=== PATIENT | female | born 2000 | race Caucasian/White ===

== ENCOUNTER 2022-09-17 11:34 | Outpatient (REF) | payer OTHER, SELFPAY ==
[2022-09-17 14:22] LABS: Blood Urea Nitrogen 13 mg/dL (9-16); Estimated Glomerular Filt Rate > 60; Potassium 4.2 mmol/L (3.3-5.1)
== END 2022-09-17 11:35 | disposition home or self-care (01) ==
LOC: HO.WFDLDS 11:34
PROVIDERS: Visit Provider Dermatology
DX: L70.0 Acne vulgaris (principal)
CPT/HCPCS: 36415; 82565; 84132; 84520

== ENCOUNTER 2022-09-26 07:10 | Emergency (ER) | payer OTHER, SELFPAY ==
[2022-09-26 07:19] VITALS: BP 94/59; PULSE 87; RESP 18; TEMP 36.8; O2SAT 97; BMI 32.8
--- NOTE | 2022-09-26 07:37 | ED.ABDPAIN ---
HPI - Abdominal Pain General Chief Complaint: Abdominal Pain Stated Complaint: Abd pain/Vomiting Time Seen by Provider: 09/26/22 07:36 Source: patient Mode of arrival: ambulatory Limitations: no limitations History of Present Illness HPI narrative: nausea and vomiting since last night with cramping abdominal pain. No fever, no medical problems. Everyone at home has URI. elicited complaint: abdominal pain Onset (ago): hour(s) Pain Consistency: constant Location: epigastric Severity: mild Quality: cramping Associated symptoms: nausea and vomiting Related Data Previous Rx's Medication Instructions Recorded ondansetron 4 mg disintegrating 4 mg PO Q8H 4 days #12 tabs 09/26/22 tablet Allergies Allergy/AdvReac Type Severity Reaction Status Date / Time No Known Allergies Allergy Unverified 04/17/20 17:04 Review of Systems Review of Systems Yes all other systems are reviewed and are negative Gastrointestinal: Reports abdominal pain, Reports nausea and Reports vomiting PMFSH Social History Social History Advance Directives: No Advance Directives Information Provided: Yes Physical Exam ED Vital Signs: Vital Signs - 24 hr 09/26/22 07:19 09/26/22 07:42 Temperature 98.3 F 99.0 F Pulse Rate 87 90 Respiratory Rate 18 17 Blood Pressure 94/59 L 123/68 Pulse Oximetry 97 99 Oxygen Delivery Method Room Air Room Air BMI result Body Mass Index 32.8 Const General: healthy appearing Nutritional Appearance: average body habitus Orientation/consciousness: oriented to person and patient oriented x3 Limitations: no limitations HENMT Head: Yes normal to inspection Ears: external ears normal General nose exam: Normal external nose present Mouth: Normal oral and palatal mucosa present and oropharynx normal Throat: Yes posterior oropharynx normal Eyes General: appearance normal, both eyes and all related structures Neck Neck: Yes normal visual inspection Chest Chest palpation & inspection: normal inspection of the chest Resp Auscultation: clear to auscultation bilaterally Cardio Jugular venous distension: no JVD Rate: regular rate Rhythm: regular rhythm Heart sounds: S1 normal heart sound present and S2 normal heart sound present GI Inspection: Yes normal to inspection Palpation (GI): Soft to palpation, nontender and No hepatosplenomegaly present Auscultation: normal bowel sounds General: Yes no CVA tenderness Back/Spine/Pelvis Back: no CVA tenderness Skin General skin exam: no rashes or lesions noted Neuro General: oriented to person and patient oriented x3 Cranial nerves: Yes CN's II-XII intact bilaterally Motor exam (neuro): 5/5 motor strength present throughout Extrem General: Yes normal to inspection Psych Appearance: grossly normal Course Reevaluation(s) Reevaluation #1: blood pressure up with iv hydration, labs show some dehydration will dc on zofran Time: 08:46 Medical Decision Making Differential Diagnosis Differential Diagnoses: The differential diagnosis associated with the presentation includes (viral gastritis, hepatitis, pancreatitis) Lab Data MDM Lab Attestation statement: I reviewed the patient's lab results. BUN elevated likely from dehyration from vomting 09/26/22 07:51 09/26/22 07:51 Labs: Lab Results 09/26/22 09/26/22 09/26/22 Range/Units 07:31 07:51 07:51 WBC 10.3 (4.8-10.8) X10*3/uL RBC 4.97 (4.20-5.50) X10*6/uL Hgb 14.4 (12.0-16.0) g/dl Hct 42.2 (37.0-47.0) % MCV 84.9 (80.0-98.0) fL MCH 29.0 (27.0-33.0) pg MCHC 34.1 (31.0-35.0) g/dl RDW 12.5 (11.0-16.0) % Plt Count 320 (160-400) X10*3/uL MPV 9.4 (9.4-12.3) fL Immature Gran % (Auto) 0.4 (0.0-0.4) % Neut % (Auto) 85.5 H (45-73) % Lymph % (Auto) 7.4 L (20-40) % Clark % (Auto) 5.5 (2-11) % Eos % (Auto) 0.9 (0-4) % Baso % (Auto) 0.3 (0-2) % Lymph # (Auto) 0.8 L (1.2-4.9) X10*3/uL Clark # (Auto) 0.6 (0.1-1.2) X10*3/uL Eos # (Auto) 0.1 (0.0-0.4) X10*3/uL Baso # (Auto) 0.0 (0.0-0.2) X10*3/uL Abs Immat Gran (auto) 0.04 H (0.00-0.03) X10*3/uL Absolute Neuts (auto) 8.8 H (2.0-8.3) x10*3/uL Absolute Nucleated RBC 0.000 (0.0-0.012) X10*3/uL Nucleated RBC % (auto) 0.0 (0.0-0.2) /100WBC Sodium 142 (135-145) mmol/L Potassium 3.8 (3.3-5.1) mmol/L Chloride 105 (96-108) mmol/L Carbon Dioxide 28 (22-29) mmol/L Anion Gap 13 (12-20) BUN 18 H (9-16) mg/dL Creatinine 0.82 (0.5-1.4) mg/dL Estim Creat Clear Calc 108.5 Estimated GFR > 60 Random Glucose 101 (60-115) mg/dL Calcium 9.5 (8.4-10.2) mg/dL Total Bilirubin 1.3 H (0.0-1.0) mg/dL AST 16 (5-31) U/L ALT 17 (0-31) U/L Alkaline Phosphatase 68 (39-117) U/L Total Protein 7.6 (6.5-8.0) g/dL Albumin 4.6 (3.5-5.0) g/dL Beta HCG, Quant < 2 mIU/mL Influenza Type A (PCR) NEGATIVE (Negative) Influenza Type B (PCR) NEGATIVE (Negative) RSV RNA Qual (PCR) NEGATIVE (Negative) SARS-CoV-2 RNA (RT-PCR) NEGATIVE (Negative) Tests considered The following testing was considered but not selected: CT of abdomen considered but abdomen soft and labs show no abnormalitis Medications Administered Discontinued Medications Generic Name Dose Route Start Last Admin Trade Name Freq PRN Reason Stop Dose Admin Sodium Chloride 500 mls @ 999 mls/hr 09/26/22 07:45 09/26/22 08:18 Ns IV 09/26/22 08:15 Infused .Q31M LAURA Infusion Ondansetron HCl 4 mg 09/26/22 07:39 09/26/22 07:46 Ondansetron Odt 4 Mg Tab.Davidceasar DEANU 09/26/22 07:40 4 mg ONCE ONE Administration Discharge Plan Discharge Clinical Impression: Gastroenteritis, Viral gastritis Patient Disposition: Home, Self-Care Instructions: Gastritis (ED), Acute Nausea and Vomiting (ED) Prescriptions: New ondansetron 4 mg tablet,disintegrating 4 mg PO Q8H 4 Days Qty: 12 0RF Referrals: Physician,Unknown J [Primary Care Provider] - 1 week
[2022-09-26 07:42] VITALS: BP 123/68; PULSE 90; RESP 17; TEMP 37.2; O2SAT 99
[2022-09-26] MEDS: 0.9 % Sodium Chloride 500 ML 999 ML IV (07:46)
[2022-09-26] MEDS: Ondansetron ODT 4 MG TAB.RAPDIS TRANSLINGU (07:46)
[2022-09-26 07:55] LABS: MANUAL DIFF FLAG NO
[2022-09-26 07:56] LABS: Basophils Percent Auto 0.3 % (0-2); Eosinophils Absolute Auto 0.1 X10*3/uL (0.0-0.4); Eosinophils Percent Auto 0.9 % (0-4); Hematocrit 42.2 % (37.0-47.0); Hemoglobin 14.4 g/dl (12.0-16.0); Imm Gran Abs Auto 0.04 X10*3/uL (0.00-0.03); Imm Gran Pct Auto 0.4 % (0.0-0.4); Lymphocytes Absolute Auto 0.8 X10*3/uL (1.2-4.9); Lymphocytes Percent Auto 7.4 % (20-40); Mean Corpuscular HGB Conc 34.1 g/dl (31.0-35.0); Mean Corpuscular Volume 84.9 fL (80.0-98.0); Mean Platelet Volume 9.4 fL (9.4-12.3); Monocytes Absolute Auto 0.6 X10*3/uL (0.1-1.2); Monocytes Percent Auto 5.5 % (2-11); Neutrophils Absolute Auto 8.8 x10*3/uL (2.0-8.3); Neutrophils Percent Auto 85.5 % (45-73); Platelet Count 320 X10*3/uL (160-400); Red Blood Count 4.97 X10*6/uL (4.20-5.50); Red Cell Distribution Width 12.5 % (11.0-16.0); White Blood Count 10.3 X10*3/uL (4.8-10.8)
[2022-09-26 08:20] LABS: Influenza A PCR NEGATIVE (Negative); Influenza B PCR NEGATIVE (Negative); Resp Syncy Virus RNA Qual PCR NEGATIVE (Negative); SARS COV2 PCR INHOUSE NEGATIVE (Negative)
[2022-09-26 08:40] LABS: Alanine Aminotransferase 17 U/L (0-31); Albumin Level 4.6 g/dL (3.5-5.0); Alkaline Phosphatase 68 U/L (39-117); Anion Gap 13 (12-20); Aspartate Amino Transferase 16 U/L (5-31); Bilirubin Total 1.3 mg/dL (0.0-1.0); Blood Urea Nitrogen 18 mg/dL (9-16); Calcium 9.5 mg/dL (8.4-10.2); Carbon Dioxide 28 mmol/L (22-29); Chloride 105 mmol/L (96-108); Creatinine Clr Calc Pharmacy 108.5; Estimated Glomerular Filt Rate > 60; Glucose Random 101 mg/dL (60-115); HCG Quantitative < 2 mIU/mL; Potassium 3.8 mmol/L (3.3-5.1); Sodium 142 mmol/L (135-145); Total Protein 7.6 g/dL (6.5-8.0)
== END 2022-09-26 08:58 | disposition home or self-care (01) ==
PROVIDERS: Emergency Provider Emergency Medicine
DX: K52.9 Noninfective gastroenteritis and colitis, unspecified (principal); A08.4 Viral intestinal infection, unspecified; Z20.822 Contact with and (suspected) exposure to COVID-19; Z20.828 Contact with and (suspected) exposure to other viral communicable diseases; Z79.899 Other long term (current) drug therapy
CPT/HCPCS: 0241U; 80053; 84702; 85025; 99284

== ENCOUNTER 2023-03-30 11:03 | Outpatient (AMB) | payer OTHER, SELFPAY ==
[2023-03-30 11:10] VITALS: BP 108/64; PULSE 70; RESP 12; TEMP 36.6; O2SAT 99; BMI 36.8
--- NOTE | 2023-03-30 11:10 | A.OFFPC_ITS ---
Vital Signs 03/30/23 11:10 Height 5 ft 3 in Weight 207 lb 8 oz BMI 36.8 BP 108/64 Blood Pressure Location Rt brachial Position Sitting Respiration 12 Pulse 70 Pulse Source Pulse Oximeter Temp 97.9 F Temp Source Temporal Artery Scan Pulse Oximetry (%) 99 Oxygen Delivery Method Room Air Intake Visit Reasons: New patient-Re establish care, requesting PE Intake Note: Patient would like to get some information for weight loss and what steps can be taken to get her to her desired weight. Freight Forwarder Required: No Accompanied by: Self / Same As Patient Allergies No Known Allergies Allergy (Verified 03/30/23 11:32) Tobacco use date assessed: 03/30/23 Dental Screening Dental Screen Date: 03/30/23 Did you have a dental visit in the last 12 months?: Yes Did you have a dental problem in the last 6 months where you did not have access to dental care?: No Was dental information given to patient?: Patient has dentist HPI HPI Comments History of Present Illness Details 22 y/o female presents to establish care She notes she was last evaluated by her former PCP 2-3 years go No significant PMH On Levonorgestrel IUD. No acute symptoms today. She notes her last blood work was done at [facility] in September,. She reports difficultly losing weight. She notes she exercise 3 times weekly. She notes she does not maintain a healthy diet. She has never been followed by a flow specialist/dietitian. She notes she has not had a pap smear test in several years. She states she is sexually active, in a monogamous relationship, and practices safe sex. She notes she has no concerns for STD. FMH: none. PFSH Medical History (Updated 03/30/23 @ 12:00 by Km Ho CNP) Acne Asthma Surgical History (Updated 03/30/23 @ 11:23 by Pooja Ng MA) No pertinent past surgical history Family History (Updated 03/30/23 @ 11:25 by Pooja Ng MA) Father Asthma High blood pressure Maternal Grandfather High blood pressure Diabetes Cardiovascular disease Social History Housing: House Patient Tobacco Use Status: Never used Tobacco e-Cigarette/Vaping Use: Never Used service: No Current occupational status: employed Current occupation: [employer] Cognitive needs: No Hearing needs: No Vision needs: No Questionnaire PHQ-9 Over the last 2 weeks, how often have you been bothered by any of the following problems? 1. Little interest or pleasure in doing things: several days 2. Feeling down, depressed, or hopeless: not at all 3. Trouble falling or staying asleep, or sleeping too much: not at all 4. Feeling tired or having little energy: several days 5. Poor appetite or overeating: more than half the days 6. Feeling bad about yourself - or that you are a failure or have let yourself or your family down: not at all 7. Trouble concentrating on things, such as reading the newspaper or watching television: not at all 8. Moving or speaking so slowly that other people could have noticed. Or the opposite - being so fidgety or restless that you have been moving around a lot more than usual: not at all 9. Thoughts that you would be better off or of hurting yourself in some way: not at all Total score: 4 Depression Screening Interpretation: Negative Source: Developed by Drs. Luis E Roman, Jackelyn Dodson, Marino Cunha and colleagues, with an educational ag from [employer]. Thrive Questionnaire Date Thrive assessed: 03/30/23 I am a: Patient What is your living situation today?: I have a steady place to live Within the past 12 months, did the food you bought not last and you didn't have the money to get more?: Never true Within the past 12 months, did you worry whether your food would run out before you got money to buy more?: Never true Do you have trouble paying for medicines?: No Do you have trouble getting transportation to medical appointments?: No Do you have trouble paying your heating and electricity bill?: No Do you have trouble taking care of your child, family member or friend?: No Do you have trouble with day-to-day activities such as bathing, preparing meals, shopping, managing finances, etc.?: No Are you currently unemployed and looking for a job?: No Are you interested in more education?: No Please select the resources that you would like help with: None Currently or been in a relationship where the following occur: no concerns reported AUDIT C Alcohol Use Questionnaire (AUDIT-C) 1. How often do you have a drink containing alcohol?: 2-4 times a month 2. How many drinks containing alcohol do you have on a typical day when you are drinking?: 3 or 4 3. How often do you have six or more drinks on one occasion?: Less than monthly Total Score: 4 BING-7 AMB Questionnaire BING-7 Date BING - 7 assessed: 03/30/23 Feeling nervous, anxious, or on edge: 1 = Several days Not being able to stop or control worryin = Not at all Worrying too much about different things: 1 = Several days Trouble relaxin = Not at all Being so restless that it is hard to sit still: 0 = Not at all Becoming easily annoyed or irritable: 0 = Not at all Feeling afraid as if something awful might happen: 0 = Not at all Total BING-7 score (0-4 normal; 5-9 mild; 10-14 moderate; 15-21 severe): 2 Source: Developed by Drs. Luis E Roman, Jackelyn Dodson, Marino Cunha and colleagues, with an educational ag from [employer]. ACT Questionnaire In the past 4 weeks, how much of the time did your asthma keep you from getting as much done at work, school or at home?: None of the time During the past 4 weeks, how often have you had shortness of breath?: Not at all During the past 4 weeks, how often did your asthma symptoms wake you up at night or earlier than usual in the morning?: Not at all During the past 4 weeks, how often have you had to use your rescue inhaler or nebulizer medication?: Not at all How would you rate your asthma control during the past 4 weeks?: Completely controlled Score: 25 Review of Systems Const Details: Denies chills, Denies fatigue, Denies fever(s), Denies headache(s) and Denies weakness HEENT Denies change in vision, Denies dizziness, Denies headache(s), Denies hearing loss, Denies nasal congestion, Denies sinus pain, Denies sinus pressure and Denies sore throat Card Denies chest pain, Denies lightheadedness, Denies dyspnea and Denies other (palpitations) Resp Denies cough, Denies dyspnea and Denies wheezing GI Denies abdominal pain, Denies melena, Denies hematochezia, Denies change in bowel habits, Denies dyspepsia and Denies nausea Denies hematuria and Denies dysuria Musc Denies abnormal gait, Denies myalgias, Denies arthralgias, Denies numbness and Denies tingling Skin/Breast Denies rash, Denies unusual bruising and Denies wounds Neuro Denies abnormal gait, Denies dizziness, Denies headache(s), Denies memory loss, Denies numbness, Denies Sensory deficit (Neuro), Denies tingling and Denies weakness Psych Denies anxiety, Denies depression and Denies memory loss Endo Denies cold intolerance, Denies fatigue, Denies heat intolerance, Denies polydipsia and Denies polyuria Lester/Lymph Denies easy bleeding and Denies easy bruising Aller/Immun Denies wheezing Physical exam (Primary Care) Vital Signs: Last Vital Signs Temp 97.9 F 03/30/23 11:10 Pulse 70 03/30/23 11:10 Resp 12 03/30/23 11:10 BP 108/64 03/30/23 11:10 Pulse Ox 99 03/30/23 11:10 Oxygen Delivery Method Room Air 03/30/23 11:10 BMI result Body Mass Index 36.8 Tobacco/Smoking Status: Tobacco use Status Tobacco use date assessed 03/30/23 03/30/23 11:22 Patient Tobacco Use Status Never used Tobacco 03/30/23 11:22 e-Cigarette/Vaping Use Never Used 03/30/23 11:22 PHQ-9: PHQ-9 Score PHQ-9: Total score 4 03/30/23 11:23 Depression Screening Interpretation: Negative Thrive Assessment: Date of Thrive Assessment Date Thrive assessed 03/30/23 03/30/23 11:22 Currently or been in a relationship where the following occur: no concerns reported Const Other: General: no acute distress, well developed, alert and awake Nutritional Appearance: well nourished Orientation/consciousness: patient oriented x3 HENMT Head: Yes normocephalic and Yes atraumatic Ears: hearing grossly normal bilaterally. Impacted cerumen of both ears occluding the TMs General nose exam: Normal external nose present and Normal nares present Mouth: Normal oral and palatal mucosa present and moist mucous membranes Teeth and gingiva: dentition normal Throat: Yes oropharynx normal Eyes Pupils: Equal, round and reactive pupils present and Pupil accommodation reflex normal EOM: EOMs intact bilaterally Neck Neck: Yes normal visual inspection, Yes no lymphadenopathy and Yes trachea midline Thyroid: Thyroid normal Carotids: no bruits Lymphatic: no lymphadenopathy noted Chest Chest palpation & inspection: normal inspection of the chest Resp Effort & Inspection: normal respiratory effort Auscultation: clear to auscultation bilaterally Cardio Rate: regular rate Rhythm: regular rhythm Heart sounds: S1 normal heart sound present, S2 normal heart sound present, no gallops, no murmurs and no rubs Bruits: no abdominal aortic bruits and no carotid bruits GI Palpation (GI): No Abdominal aortic bruit present, Soft to palpation, nontender, No hepatosplenomegaly present and No Rebound tenderness present Auscultation: normal bowel sounds General: Yes no CVA tenderness Back/Spine/Pelvis Back: no CVA tenderness Cervical Spine: cervical ROM normal and No Cervical spine tenderness Thoracic/Lumbar Spine: thoraco-lumbar ROM normal, No pain with thoraco-lumbar ROM, No thoracic spinal tenderness and No lumbar spinal tenderness Skin General: warm and dry. Normal skin color. Normal skin turgor Lesions: no lesions Rashes: no rashes Trauma: no lacerations or abrasions Wounds: no wounds Nails: normal Neuro General: patient oriented x3, gait normal and CN's II-XI intact bilaterally Cranial nerves: Yes Equal, round and reactive pupils present Cognition (Neuro): normal cognition Gait exam (Neuro): Normal gait present Motor exam (neuro): 5/5 motor strength present throughout Sensory Exam: No Sensory deficit (Neuro) Deep tendon reflexes (DTR's): Right patellar reflex intensity grade: 2+ and Left patellar reflex intensity grade: 2+ Extrem General: Yes normal to inspection, No edema and No calf tenderness Psych Appearance: grossly normal Affect: normal affect Attitude: cooperative Thought process: Normal thought process present Assessment and Plan Assessment & Plan (1) Normal physical examination, routine: Code(s): Z00.00 - Encounter for general adult medical examination without abnormal findings Plan: No significant physical restrictions or limitations noted Will check LP, TSH, fasting glucose, and UA Advised to get routine fasting blood work done and schedule a telehealth visit for labs review Return with symptoms or concerns Verbalized understanding and agreed with the treatment plan (2) Obesity (BMI 30-39.9): Code(s): E66.9 - Obesity, unspecified Plan: Reports difficultly losing weight. She notes she exercise 3 times weekly. She notes she does not maintain a healthy diet. She has never been followed by a flow specialist/dietitian. Routine exercise and healthy diet instructed and encouraged Referred to flow specialist/dietitian and weight management Return with symptoms or concerns Verbalized understanding and agreed with the plan. (3) Pap smear for cervical cancer screening: Code(s): Z12.4 - Encounter for screening for malignant neoplasm of cervix Plan: She notes she has not had a pap smear test in several years. Refer to [facility] (4) Impacted cerumen of both ears: Code(s): H61.23 - Impacted cerumen, bilateral Plan: Impacted cerumen of both ears occluding the TMs No hearing impairment Advised to return for cerumen removal with ear pain or impairment Verbalized understanding and agreed with the plan (5) Laboratory tests ordered as part of a complete physical exam (CPE): Code(s): Z00.00 - Encounter for general adult medical examination without abnormal findings Plan: Fasting labs ordered as part of a complete physical exam. Advised to fast for at least 10 hours before getting labs drawn. May drink water Verbalized understanding and agreed with treatment plan. Orders: Orders Glucose Fasting Today Z00.00 - Encounter for general adult medical examination without abnormal findings Lipid Panel Today Z00.00 - Encounter for general adult medical examination without abnormal findings TSH reflex Free T4 Today Z00.00 - Encounter for general adult medical examination without abnormal findings UA CC w/rflx Micro + Cult Today Z00.00 - Encounter for general adult medical examination without abnormal findings Referrals Ruby Engineer Nutrition Referral E66.9 - Obesity, unspecified Medical Weight Management Referral E66.9 - Obesity, unspecified CODER Referral Z12.4 - Encounter for screening for malignant neoplasm of cervix Coding Level of Care Code New Pt Prev Care [id number] Diagnoses Normal physical examination, routine Z00.00 Obesity (BMI 30-39.9) E66.9 Pap smear for cervical cancer screening Z12.4 Impacted cerumen of both ears H61.23 Laboratory tests ordered as part of a complete physical exam (CPE) Z00.00
== END 2023-03-30 11:57 | disposition home or self-care (01) ==
PROVIDERS: PCP Nurse Practitioner Family; Visit Provider Nurse Practitioner Family
DX: Z00.00 Encounter for general adult medical examination without abnormal findings (principal); E66.9 Obesity, unspecified; H61.23 Impacted cerumen, bilateral; Z68.36 Body mass index [BMI] 36.0-36.9, adult
CPT/HCPCS: 99385

== ENCOUNTER 2023-04-15 10:28 | Outpatient (REF) | payer OTHER, SELFPAY ==
[2023-04-15 15:17] LABS: Appearance Urine Clear; Color Urine Yellow; Glucose Urine UA Negative (Negative); Leukocyte Esterase Urine Negative (Negative); Nitrite Urine Negative (Negative); Urine Blood Negative (Negative); Urine Ketones Negative (Negative); Urine Protein Negative (Neg-Trace)
[2023-04-15 16:24] LABS: Cholesterol 144 mg/dL (<200); Glucose Fasting 64 mg/dL (60-99); HDL Cholesterol 51 mg/dL (>40); LDL Cholesterol Calculated 80 mg/dL (<100); TSH reflex Free T4 2.41 uIU/mL (0.32-4.0); Triglycerides 67 mg/dL (<150)
== END 2023-04-15 10:29 | disposition home or self-care (01) ==
LOC: HO.WFDLDS 10:28
PROVIDERS: Visit Provider Nurse Practitioner Family
DX: Z00.00 Encounter for general adult medical examination without abnormal findings (principal)
CPT/HCPCS: 36415; 80061; 81003; 82947; 84443

== ENCOUNTER 2023-05-03 09:56 | Emergency (ER) | payer OTHER, SELFPAY ==
[2023-05-03 09:58] VITALS: BP 126/71; PULSE 60; RESP 18; TEMP 36.6; O2SAT 100; BMI 37.5
--- NOTE | 2023-05-03 10:14 | ED_ITS ---
HPI - General Adult General Chief complaint: General Medical Stated complaint: Stung by bee L arm/redness swelling Time Seen by Provider: 05/03/23 10:07 Source: patient, RN notes reviewed and old records reviewed Mode of arrival: ambulatory History of Present Illness HPI narrative: 22-year-old female with no significant past medical history presenting to the ED complaining of increasing erythema, swelling, and pruritus s/p being stung by a bee 3 days ago. Denies known allergens, cough, wheeze, SOB, throat closing sensation, new exposures. Admits to taking Benadryl last night with minimal relief, denies taking anything today. Related Data Home Medications Medication Instructions Recorded Confirmed levonorgestrel 20.4 mcg/24 hrs (8 intrauterine 03/30/23 yrs) 52 mg intrauterine device (Liletta) Allergies Allergy/AdvReac Type Severity Reaction Status Date / Time No Known Allergies Allergy Verified 05/03/23 09:57 Review of Systems Review of Systems: Constitutional: No Fever, No Chills ENT/Mouth: No Ear Pain, No Nasal Congestion, No Hoarseness, No sore throat, No Rhinorrhea, No Swallowing Difficulty Cardiovascular: No Chest Pain, No SOB Respiratory: No Cough, No Sputum, No Wheezing Gastrointestinal: No Nausea, No Vomiting Musculoskeletal: No joint pain, No Myalgias, No Joint Swelling Skin: + Skin Lesions, No rash Neuro: No Weakness Yes all other systems are reviewed and are negative Constitutional: Constitutional: Reports as per [facility] Past Medical History Attestation statement: The following information was validated with the patient. Source: old records reviewed Medical History Acne Asthma Surgical History No pertinent past surgical history Family History Family History Father Asthma High blood pressure Maternal Grandfather High blood pressure Diabetes Cardiovascular disease Social History Social History Housing: House Patient Tobacco Use Status: Never used Tobacco Smoked in Last 30 Days: No e-Cigarette/Vaping Use: Never Used Use of substances other than those prescribed or required for medical reasons: No Advance Directives: No Advance Directives Information Provided: No service: No Current occupational status: employed Current occupation: [employer] Cognitive needs: No Hearing needs: No Vision needs: No Physical Exam ED Vital Signs: Vital Signs - 24 hr 05/03/23 09:58 Temperature 97.9 F Pulse Rate 60 Respiratory Rate 18 Blood Pressure 126/71 Pulse Oximetry 100 Oxygen Delivery Method Room Air BMI result Body Mass Index 37.5 Const General: cooperative, healthy appearing and no acute distress Orientation/consciousness: patient oriented x3 Limitations: no limitations HENMT Head: Yes normal to inspection and Yes atraumatic Ears: hearing grossly normal bilaterally General nose exam: Normal external nose present Face and sinus: Yes normal facial exam Throat: Yes uvula midline, No peritonsillar mass, No uvula laterally displaced and No uvular edema Eyes General: appearance normal, both eyes and all related structures EOM: EOMs intact bilaterally Neck Neck: Yes normal visual inspection, Yes no meningeal signs, Yes supple, No ante rior neck swelling and No torticollis Resp Effort & Inspection: normal respiratory effort, not labored, no respiratory distress and no stridor Auscultation: clear to auscultation bilaterally Cardio Rate: regular rate Skin Other: + insect bite to left upper arm with large localized allergic reaction with surrounding erythema, and swelling. Warm. No fluctuance/induration. Not circumferential. Compartments soft/no crepitus Wounds: no wounds Neuro General: patient oriented x3, tone normal and no meningeal signs Cranial nerves: Yes CN's II-XII intact bilaterally Gait exam (Neuro): Normal gait present Extrem General: Yes normal to inspection Course Course Course Narrative: -1121--on re-evaluation swelling and erythema has decreased after medication administration Results discussed with patient including worrisome signs and symptoms and strict return precautions, and when to return to the emergency department. They verbalized understanding and feel safe for discharge at this time. Medications Administered Discontinued Medications Generic Name Dose Route Start Last Admin Trade Name Freq PRN Reason Stop Dose Admin Diphenhydramine HCl 50 mg 05/03/23 10:17 05/03/23 10:32 Diphenhydramine Hcl 50 Mg/Ml Vial IM 05/03/23 10:18 50 mg ONCE ONE Administration Famotidine 20 mg 05/03/23 10:17 05/03/23 10:32 Famotidine 20 Mg Tablet PO 05/03/23 10:18 20 mg ONCE ONE Administration Hydrocortisone 1 appl 05/03/23 10:17 05/03/23 10:47 Hydrocortisone 1 % Cream 28.35 Gm Tube TOPICAL 05/03/23 10:18 1 appl ONCE ONE Administration Protocol Loratadine 10 mg 05/03/23 10:17 05/03/23 10:31 Loratadine 10 Mg Tablet PO 05/03/23 10:18 10 mg ONCE ONE Administration Methylprednisolone Sodium Succinate 60 mg 05/03/23 10:17 05/03/23 10:32 Methylprednisolone Sod Succ 125 Mg/2 Ml Vial IM 05/03/23 10:18 60 mg ONCE ONE Administration Medical Decision Making Medical Decision Making MDM Narrative: 22-year-old female with no significant past medical history presenting to the ED complaining of increasing erythema, swelling, and pruritus s/p being stung by a bee 3 days ago. On exam vital signs stable, NAD, nontoxic appearing, no respiratory distress/compromise, talking in complete sentences, no stridor, uvula midline, large localized allergic reaction noted to left upper arm with notable insect bite location. Not circumferential. Warm to touch. Neurovascular intact distally. Full range of motion intact. Concern for allergic reaction. Low suspicion for cellulitis, no evidence of anaphylaxis. Low suspicion for compartment syndrome Plan: IM Solu-Medrol/Benadryl, p.o. Pepcid/Claritin and topical hydrocortisone, re-evaluate Please refer to course for remaining clinical decision making, interpretation of labs/imaging results, and discussions with consultants and/or family members. Differential Diagnosis Differential Diagnoses: The differential diagnosis associated with the presentation includes As above External Record Review External record reviewed: Inpatient record, Office record, Outpatient record, Prior outpatient labs, Prior outpatient radiology, Primary care record and Outside ED record Tests considered The following testing was considered but not selected: As above Prescription Management I considered prescription management with: Antibiotic (Not needed at this time) and Other Discharge Plan Discharge Clinical Impression: Localized allergic contact urticaria, Accidental bee sting Patient Disposition: Home, Self-Care Instructions: Insect Bite or Sting (ED), General Allergic Reaction (ED) Additional Instructions: Your given injection of medications today to help with her symptoms In addition continue to take Benadryl at home, be aware this will make you drowsy Take Zyrtec or Melvi during the day You may also take Pepcid Topical hydrocortisone help with itching, apply to rash area only, avoid application to face, hands or feet. If he develops any difficulty breathing, throat scratching/closing sensation, cough, SOB return to the ED immediately Prescriptions: No Action Liletta 20.4 mcg/24 hrs (8 yrs) 52 mg intrauterine device intrauterine Referrals: Km [facility], CATERING ATTENDANT [Primary Care Provider] - 3 days
[2023-05-03] MEDS: Loratadine 10 MG TABLET PO (10:31)
[2023-05-03] MEDS: diphenhydrAMINE HCL 50 MG/ML VIAL IM (10:32)
[2023-05-03] MEDS: Famotidine 20 MG TABLET PO (10:32)
[2023-05-03] MEDS: methylPREDNISolone Sod Succ 125 MG/2 ML VIAL 60 MG IM (10:32)
--- NOTE | 2023-05-03 10:40 | PC.NURSE ---
swollen red raised areas to LUE- states stung by bee tuesday w/o sx anaphylaxis. itchy at site. no distress. breathing well. talks w/o issue. calm, coop. aox4
--- NOTE | 2023-05-03 10:41 | PC.NURSE ---
med req'd hydrocort cream
[2023-05-03] MEDS: Hydrocortisone 1 % Cream 28.35 GM TUBE 1 APPL TOPICAL (10:47)
--- NOTE | 2023-05-03 11:39 | PC.NURSE ---
no diff breathing. aox4. calm, coop.
== END 2023-05-03 11:39 | disposition home or self-care (01) ==
PROVIDERS: Emergency Provider Emergency Medicine; PCP Nurse Practitioner Family
DX: T63.441A Toxic effect of venom of bees, accidental (unintentional), initial encounter (principal); L23.9 Allergic contact dermatitis, unspecified cause; Y92.9 Unspecified place or not applicable
CPT/HCPCS: 96372; 99284; J1200; J2930

== ENCOUNTER 2023-07-27 13:23 | Outpatient (REF) | payer OTHER, SELFPAY ==
[2023-07-28 02:45] LABS: CT PCR NOT DETECTED (Not Detect.); NG PCR NOT DETECTED (Not Detect.)
[2023-07-28 12:48] LABS: BV Int Neg Control Negative (Negative); BV Int Pos Control Positive (Positive)
== END 2023-07-27 13:24 | disposition home or self-care (01) ==
LOC: HO.LNP 13:23
PROVIDERS: PCP Nurse Practitioner Family; Visit Provider Advanced Practice Midwife
DX: Z01.419 Encounter for gynecological examination (general) (routine) without abnormal findings (principal); E66.9 Obesity, unspecified; Z97.5 Presence of (intrauterine) contraceptive device; Z20.2 Contact with and (suspected) exposure to infections with a predominantly sexual mode of transmission; Z79.899 Other long term (current) drug therapy
CPT/HCPCS: 0353U; 87480; 87510; 87660

== ENCOUNTER 2023-07-27 13:23 | Outpatient (AMB) | payer OTHER, SELFPAY ==
[2023-07-27 13:44] VITALS: BP 120/68; BMI 38.8
--- NOTE | 2023-07-27 13:44 | A.OFFVIS_ITS ---
Intake Vital Signs 07/27/23 13:44 Height 5 ft 3 in Weight 219 lb BMI 38.8 BP 120/68 Intake Visit Reasons: New patient Annual Intake Note: IUD check Thinner Sprayer Required: No Information Interpreted: non-clinical & clinical Senior Commissary Agent: Senior Commissary Agent Present (Aidyn) Allergies No Known Allergies Allergy (Verified 07/27/23 13:45) Medication List - Last Reconciled 07/27/23 by Miya Sanchez CNM famotidine (Pepcid) 20 mg PO DAILY hydrocortisone 1% (Anti-Itch (hydrocortisone)) 1 appl topical BID PRN levonorgestrel (Liletta) intrauterine prednisone 40 mg (2 x 20 mg) PO DAILY 5 days Is last menstrual period known: Yes Last menstrual period: 07/24/23 Post menopausal: No HPI New patient Annual HPI Details 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 She used to go to somebody from [facility] in the [place] office she has a Mirena for few years but she is not sure how many she thinks it might be about 6 years if she were pressed to guess. She thinks her last Pap smear was 2 years ago and it was normal and she has never had an abnormal 1 she is in a monogamous relationship with her boyfriend they bought a house and then they got a dog 1 year ago as a puppy. Childbearing is not in her eyes in in the near future but maybe sometime after that. She spoke to her primary care provider about weight loss and is awaiting a referral to the weight management program. She is not doing any formal exercise but she is very active with her 70 lb dog who was just to year old. 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 She has a Liletta IUD and her periods went away for the 1st year but they returned soon after and they have been fairly regular since then not very heavy at all. She thought they told her it was good for 7 day 8 years but she does not have any paperwork and she thought that we would know when it was inserted but there are no records in the system documenting this. [facility] Medical History Acne Asthma Surgical History No pertinent past surgical history Family History Father Asthma High blood pressure Maternal Grandfather High blood pressure Diabetes Cardiovascular disease Social History Housing: House Patient Tobacco Use Status: Never used Tobacco e-Cigarette/Vaping Use: Never Used service: No Current occupational status: employed Current occupation: [employer] Cognitive needs: No Hearing needs: No Vision needs: No Female Reproductive History Menstrual Age of Menarche: 8 Duration of menses: 3-5 days Date of last menstrual period: 07/24/23 control method: progestin IUCD (Lylleta) Total pregnancies: 0 Physical Exam Vital Signs: Last Vital Signs BP 120/68 07/27/23 13:44 BMI result Body Mass Index 38.8 Const General: healthy appearing, comfortable, no acute distress, well developed and alert Nutritional Appearance: average body habitus Orientation/consciousness: patient oriented x3 Limitations: no limitations HEENT Head: Yes normocephalic Neck Neck: Yes normal visual inspection Thyroid: Thyroid normal Chest Chest palpation & inspection: normal inspection of the chest Breast/axilla inspection: normal inspection of the breasts and normal inspection of the axillae Breast/axilla palpation: normal palpation of the breasts and normal palpation of the axillae Resp Effort & Inspection: normal respiratory effort GI Inspection: Yes normal to inspection, No Abdominal wall edema and No distended Palpation (GI): Soft to palpation and nontender General: Yes bladder normal to palpation External Female Exam: normal external appearance and normal appearance of the urethra Speculum Exam - Vagina: normal appearance of the vagina, normal palpation and normal vaginal discharge Speculum Exam - Cervix: normal appearance of the cervix, normal palpation and nontender Bimanual exam- vagina & uterus: normal bimanual exam, normal palpation, uterine size normal, bladder normal to palpation, consistency normal, normal palpation, uterine mobility normal, uterine shape normal, No Cervical tenderness present, non-tender and no cervical motion tenderness Bimanual Exam- Adnexa, other: normal adnexae, no masses, normal and No adnexal tenderness Neuro General: patient oriented x3 Assessment & Plan Assessment & Plan (1) Obesity (BMI 30-39.9): Code(s): E66.9 - Obesity, unspecified (2) Pap smear for cervical cancer screening: Comment: Patient believes her last negative and normal Pap smear was done in 2020 she would be due for a Pap smear in 2023 Code(s): Z12.4 - Encounter for screening for malignant neoplasm of cervix (3) Well woman exam with routine gynecological exam: Code(s): Z01.419 - Encounter for gynecological examination (general) (routine) without abnormal findings (4) Presence of 52 mg levonorgestrel-releasing intrauterine device (IUD): Comment: Has a Liletta that was placed perhaps 6 years ago though she is uncertain using that for control--plan on replacement with new Mirena at beginning of menses next month or the next, use condoms as backup till then. Code(s): Z97.5 - Presence of (intrauterine) contraceptive device Plan -----Discussed in this visit the following: healthy balanced diet, regular and consistent exercise, getting recommended health screens, doing the best she can for her particular health concerns, kegel exercises, pap smear screening and followup recommendations, mammography screening and SBE, normal changes in cycles in her life stage--- .----I reviewed available options for Control Methods and their associated side effect profiles. In particular, we discussed the method most of interest to her.-she likes the Liletta and its served her well and she has not had any negative side effects since it is being used for control and unclear when it was inserted re should plan on replacing it when possible with either her next menses or the 1 after that if possible. She does not believe she is due for the Pap smear until next year so Pap was deferred but testing for STIs was done the discharge appeared completely normal consistent with mucousy post menses discharge Liletta string was visible. Discussed the length of time levonorgestrel IUDs can be used and while the time is somewhat variable when they reach the end of their life time it is very difficult to say how long they really are protective against . Her menses returned about 1 year into the use of the Liletta. She is not planning a at this time and would like to put off for few more years so it would be heard to replace it soon discussed replacing it that we will just simply remove 1 and replace it with Mirena but we should do it at the beginning of her. Additionally while I used a Dmitriy speculum today a Graves speculum would be necessary to gain sufficient access to her cervix for replacement. She declined blood work for STIs as not necessary. Orders: Orders CT NG by PCR Today Z11.3 - Encounter for screening for infections with a predominantly sexual mode of transmission Bacterial Vaginosis Panel Today Z11.3 - Encounter for screening for infections with a predominantly sexual mode of transmission Coding Level of Care Code New Pt Prev Care 18-39yr([id number] Diagnoses Obesity (BMI 30-39.9) E66.9 Pap smear for cervical cancer screening Z12.4 Well woman exam with routine gynecological exam Z01.419 Presence of 52 mg levonorgestrel-releasing intrauterine device (IUD) Z97.5
== END 2023-07-27 14:27 | disposition home or self-care (01) ==
PROVIDERS: PCP Nurse Practitioner Family; Visit Provider Advanced Practice Midwife
DX: Z01.419 Encounter for gynecological examination (general) (routine) without abnormal findings (principal); E66.9 Obesity, unspecified; Z97.5 Presence of (intrauterine) contraceptive device
CPT/HCPCS: 99385

== ENCOUNTER 2024-01-10 09:38 | Outpatient (AMB) | payer OTHER, SELFPAY ==
[2024-01-10 09:45] VITALS: BP 110/70; PULSE 84; RESP 14; TEMP 36.6; O2SAT 99; BMI 37.1
--- NOTE | 2024-01-10 09:45 | MHC.PC.OV ---
Vital Signs 01/10/24 09:45 Height 5 ft 3 in Weight 209 lb 4 oz BMI 37.1 BP 110/70 Blood Pressure Location Rt brachial Position Sitting Respiration 14 Pulse 84 Pulse Source Pulse Oximeter Temp 97.8 F Temp Source Temporal Artery Scan Pulse Oximetry (%) 99 Oxygen Delivery Method Room Air Intake Visit Reasons: Sore Throat, Cough, Runny Nose Pharmacist Apprentice Required: No Accompanied by: Self / Same As Patient Allergies No Known Allergies Allergy (Verified 01/10/24 09:50) Tobacco use date assessed: 01/10/24 Dental Screening Dental Screen Date: 01/10/24 Did you have a dental visit in the last 12 months?: Yes Did you have a dental problem in the last 6 months where you did not have access to dental care?: No Was dental information given to patient?: Patient has dentist HPI HPI Comments History of Present Illness Details 23-year-old female presents with complaints of cold symptoms for the past 2 weeks. She reports intermittent productive cough with clear mucus that is worse at night, sore throat, runny nose, and crusty eyes in the morning (no pain, redness, or visual disturbances). She had a negative home covid test over a week ago. She had body aches and chills for 24 hours about a week ago. She has been taking Claritin daily and Tylenol at night. No current fever, chills, body aches, fatigue or weakness. Her partner has a cough. [facility] Medical History Acne Asthma Surgical History No pertinent past surgical history Family History Father Asthma High blood pressure Maternal Grandfather High blood pressure Diabetes Cardiovascular disease Social History Housing: House Patient Tobacco Use Status: Never used Tobacco e-Cigarette/Vaping Use: Never Used service: No Current occupational status: employed Current occupation: [employer] Cognitive needs: No Hearing needs: No Vision needs: No Female Reproductive History Menstrual Age of Menarche: 8 Questionnaire Thrive Questionnaire Date Thrive assessed: 03/30/23 BING-7 AMB Questionnaire BING-7 Date BING - 7 assessed: 03/30/23 Source: Developed by Drs. Luis E Roman, Jackelyn Dodson, Marino Cunha and colleagues, with an educational ag from [employer]. Review of Systems Const Details: Const Denies chills, Denies fatigue, Denies fever(s), Denies headache(s) and Denies weakness ENT Reports as per HPI Card Denies chest pain, Denies lightheadedness, Denies dyspnea and Denies other (Palpitations) Resp Denies cough, Denies dyspnea, Denies wheezing and Denies other ( shortness of breath) GI Denies abdominal pain, Denies melena, Denies hematochezia, Denies change in bowel habits, Denies dyspepsia and Denies nausea Denies hematuria and Denies dysuria Musc Denies abnormal gait, Denies myalgias, Denies arthralgias, Denies numbness and Denies tingling Skin/Breast Denies rash, Denies unusual bruising and Denies wounds Neuro Denies abnormal gait, Denies dizziness, Denies headache(s), Denies memory loss, Denies numbness, Denies Sensory deficit (Neuro), Denies tingling and Denies weakness Psych Denies anxiety, Denies depression, Denies memory loss Endo Denies cold intolerance, Denies fatigue, Denies heat intolerance, Denies polydipsia and Denies polyuria Aller/Immun Denies wheezing Physical exam (Primary Care) Vital Signs: Last Vital Signs Temp 97.8 F 01/10/24 09:45 Pulse 84 01/10/24 09:45 Resp 14 01/10/24 09:45 BP 110/70 01/10/24 09:45 Pulse Ox 99 01/10/24 09:45 Oxygen Delivery Method Room Air 01/10/24 09:45 BMI result Body Mass Index 37.1 Tobacco/Smoking Status: Tobacco use Status Tobacco use date assessed 01/10/24 01/10/24 09:52 Patient Tobacco Use Status Never used Tobacco 01/10/24 09:52 e-Cigarette/Vaping Use Never Used 01/10/24 09:52 Thrive Assessment: Date of Thrive Assessment Date Thrive assessed 03/30/23 01/10/24 09:52 Const Other: General: no acute distress and well developed Nutritional Appearance: well nourished Orientation/consciousness: patient oriented x3 HENIL Head is normocephalic Bilateral ear canal and TM are normal Nasal turbinates is pink and moist Oropharynx with moderate erythema, no patches, exudates, or edema Sinuses are nontender with palpation No auricular or cervical lymphadenopathy Eyes General: appearance normal, both eyes and all related structures Pupils: Equal, round and reactive pupils present EOM: EOMs intact bilaterally Resp Effort & Inspection: normal respiratory effort Auscultation: clear to auscultation bilaterally Cardio Rate: regular rate Rhythm: regular rhythm Heart sounds: S1 normal heart sound present, S2 normal heart sound present, no gallops, no murmurs and no rubs GI Palpation (GI): No Abdominal aortic bruit present, Soft to palpation, nontender, No hepatosplenomegaly present and No Rebound tenderness present Auscultation: normal bowel sounds General: Yes no CVA tenderness Back/Spine/Pelvis Back: no CVA tenderness Cervical Spine: cervical ROM normal and No Cervical spine tenderness Thoracic/Lumbar Spine: thoraco-lumbar ROM normal, No pain with thoraco-lumbar ROM, No thoracic spinal tenderness and No lumbar spinal tenderness Extrem General: Yes normal to inspection, No edema and No calf tenderness Skin General: warm and dry. Normal skin color. Normal skin turgor Neuro General: patient oriented x3, gait normal and no focal neuro deficit Cranial nerves: Yes Equal, round and reactive pupils present Cognition (Neuro): normal cognition Gait exam (Neuro): Normal gait present Sensory Exam: No Sensory deficit (Neuro) Psych Appearance: grossly normal Affect: normal affect Attitude: cooperative Thought process: Normal thought process present Assessment and Plan Assessment & Plan (1) Viral upper respiratory illness: Code(s): J06.9 - Acute upper respiratory infection, unspecified Plan: Likely viral illness though possibly allergies. No exam evidence of bacterial infection Viral illness There is no antibiotic medication for viruses.? They must run their course.? Most average 5-7 days but 7-10 days is not uncommon and up to 14 days is still possible.? A cough is often the last symptom to resolve and this can last for weeks in some cases. Rest Hydrate well -? Drink plenty of fluids.? Especially water. Tylenol or ibuprofen for muscle aches, headache, fever/discomfort Cannot rule out COVID-19/RSV/Flu infection Nasal swab acquired and will be sent to the lab May stop taking Claritin and start taking Zyrtec daily Advised to take benzonatate as prescribed Return for new or worsening symptoms Verbalized understanding and agreed with treatment plan. (2) Viral pharyngitis: Code(s): J02.9 - Acute pharyngitis, unspecified Plan: Oropharynx with moderate erythema, no patches, exudates, or edema No evidence of bacterial infection Plan as above Orders: Orders SARS-CoV2/FLU/RSV Today J06.9 - Acute upper respiratory infection, unspecified Medications: New benzonatate 200 mg PO BID PRN 20 caps 0RF cough Coding Level of Care Code Est Pt Level 4 (32604) Complex EM visit Add On G2211 Diagnoses Viral upper respiratory illness J06.9 Viral pharyngitis J02.9
== END 2024-01-10 10:12 | disposition home or self-care (01) ==
PROVIDERS: PCP Nurse Practitioner Family; Visit Provider Nurse Practitioner Family
DX: J06.9 Acute upper respiratory infection, unspecified (principal); J02.9 Acute pharyngitis, unspecified
CPT/HCPCS: 99214

== ENCOUNTER 2024-01-10 10:14 | Outpatient (REF) | payer OTHER, SELFPAY ==
[2024-01-10 15:20] LABS: Influenza A PCR NEGATIVE (Negative); Influenza B PCR NEGATIVE (Negative); Resp Syncy Virus RNA Qual PCR NEGATIVE (Negative); SARS COV2 PCR INHOUSE NEGATIVE (Negative)
== END 2024-01-10 10:15 | disposition home or self-care (01) ==
LOC: HO.LAB 10:14
PROVIDERS: Visit Provider Nurse Practitioner Family
DX: J06.9 Acute upper respiratory infection, unspecified (principal)
CPT/HCPCS: 0241U

== ENCOUNTER 2024-02-15 21:53 | Emergency (ER) | payer OTHER, SELFPAY ==
--- NOTE | ~2024-02-15 | US_ITS ---
EXAMINATION: US ABDOMEN LIMITED CLINICAL INFORMATION: Right upper quadrant pain. COMPARISON: None available. TECHNIQUE: Real-time imaging of the right upper quadrant abdominal viscera. This examination is focused on the liver, gallbladder and common duct. FINDINGS: LIVER: Normal size, contour and parenchymal echotexture. No focal lesion or intrahepatic ductal dilatation. GALLBLADDER: Normal. The gallbladder is physiologically distended without evidence of stones, sludge, polyps, wall thickening or pericholecystic fluid. COMMON BILE DUCT: Normal in caliber measuring up to 0.5 cm in maximum diameter. FREE FLUID: None. US/US abdomen limited IMPRESSION: Normal exam. No evidence of cholelithiasis, cholecystitis or biliary tract obstruction.
[2024-02-15 22:12] VITALS: BP 105/66; PULSE 69; RESP 18; TEMP 36.5; O2SAT 99; BMI 35.8
--- NOTE | 2024-02-15 22:39 | MHC.EDTECH ---
Patient blood drawn and sent to lab .
[2024-02-15 22:40] LABS: MANUAL DIFF FLAG NO
[2024-02-15 22:41] LABS: Basophils Percent Auto 0.2 % (0-2); Eosinophils Absolute Auto 0.1 X10*3/uL (0.0-0.4); Eosinophils Percent Auto 0.6 % (0-4); Hematocrit 35.9 % (37.0-47.0); Hemoglobin 12.6 g/dl (12.0-16.0); Imm Gran Abs Auto 0.03 X10*3/uL (0.00-0.03); Imm Gran Pct Auto 0.2 % (0.0-0.4); Lymphocytes Percent Auto 23.6 % (20-40); Mean Corpuscular HGB Conc 35.1 g/dl (31.0-35.0); Mean Corpuscular Hemoglobin 29.7 pg (27.0-33.0); Mean Corpuscular Volume 84.7 fL (80.0-98.0); Mean Platelet Volume 9.6 fL (9.4-12.3); Monocytes Absolute Auto 0.9 X10*3/uL (0.1-1.2); Monocytes Percent Auto 6.8 % (2-11); Neutrophils Absolute Auto 8.7 x10*3/uL (2.0-8.3); Neutrophils Percent Auto 68.6 % (45-73); Platelet Count 345 X10*3/uL (160-400); Red Blood Count 4.24 X10*6/uL (4.20-5.50); White Blood Count 12.6 X10*3/uL (4.8-10.8)
[2024-02-15 22:55] LABS: Alanine Aminotransferase 11 U/L (0-31); Albumin Level 4.5 g/dL (3.5-5.0); Alkaline Phosphatase 67 U/L (39-117); Anion Gap 16 (12-20); Aspartate Amino Transferase 14 U/L (5-31); Bilirubin Direct 0.2 mg/dL (0.0-0.5); Bilirubin Total 0.5 mg/dL (0.0-1.0); Blood Urea Nitrogen 15 mg/dL (9-16); Calcium 9.8 mg/dL (8.4-10.2); Carbon Dioxide 22 mmol/L (22-29); Chloride 106 mmol/L (96-108); Creatinine Clr Calc Pharmacy 124.9; Estimated Glomerular Filt Rate > 60; Glucose Random 96 mg/dL (60-115); Lipase 16 U/L (8-78); Potassium 3.5 mmol/L (3.3-5.1); Sodium 140 mmol/L (135-145); Total Protein 7.5 g/dL (6.5-8.0)
[2024-02-16 02:14] VITALS: BP 115/67; PULSE 80; RESP 16; O2SAT 99
[2024-02-16 02:26] LABS: Appearance Urine Clear; Color Urine Yellow; Glucose Urine UA Negative (Negative); Leukocyte Esterase Urine Negative (Negative); Nitrite Urine Negative (Negative); PH 6.5 (5.0-9.0); Specific Gravity - Urine >= 1.030 (1.005-1.025); Urine Blood Negative (Negative); Urine Ketones Trace mg/dL (Negative); Urine Protein Negative (Neg-Trace)
[2024-02-16 02:31] LABS: UPreg QC Valid YES; Urine Pregnancy NEGATIVE (NEGATIVE)
[2024-02-16] MEDS: Ketorolac Tromethamine 15 MG/ML VIAL IVPUSH (04:59)
[2024-02-16] MEDS: ondansetron HCL 4 MG/2 ML VIAL IVPUSH (05:00)
[2024-02-16] MEDS: 0.9 % Sodium Chloride 1,000 ML 999 ML IV (05:09)
--- NOTE | 2024-02-16 06:49 | ED_ITS ---
HPI - General Adult General Chief complaint: Abdominal Pain Stated complaint: R side abd pain, vomiting, back pain Time Seen by Provider: 02/16/24 06:45 Source: patient Mode of arrival: ambulatory Limitations: no limitations History of Present Illness ED Provider: Sunni Mathias PA-C HPI narrative: Patient is a 23 year old assigned female at with no reported medical history presenting to the emergency department today with intermittent right upper quadrant pain that radiates into her right shoulder. Patient states that over the last few days she has had intermittent right upper quadrant abdominal pain that radiates into her right shoulder. Patient states that eating seems to trigger it. Patient denies any dizziness, lightheadedness, nausea, vomiting, fever, chills, blurry vision, double vision, loss of vision, chest pain, difficulty breathing, shortness of breath, back pain, night sweats, pain with urination, increased urinary frequency, increased urinary urgency, blood in her urine or stool, syncope or a near syncopal episode, recent trauma or falls, bowel incontinence, bladder incontinence, or any other complaints at this time. Onset (ago): day(s) Location: abdomen Radiation: other (R shoulder) Severity: mild Severity scale (1-10): 4 Quality: aching Pain Consistency: now resolved and colicky Relieving factors: none Exacerbating factors: none Associated symptoms: denies other symptoms Treatments prior to arrival: none Related Data Home Medications ?Medication ?Instructions ?Recorded ?Confirmed levonorgestrel 20.4 mcg/24 hr (up intrauterine 03/30/23 07/27/23 to 8 yrs) 52 mg intrauterine device (Liletta) famotidine 20 mg tablet (Pepcid) 20 mg PO DAILY PRN 01/10/24 Previous Rx's ?Medication ?Instructions ?Recorded hydrocortisone 1 % topical cream 1 appl topical BID PRN rash #28.35 05/03/23 (Anti-Itch (hydrocortisone)) grams benzonatate 200 mg capsule 200 mg PO BID PRN cough #20 caps 01/10/24 Allergies Allergy/AdvReac Type Severity Reaction Status Date / Time No Known Allergies Allergy Verified 02/15/24 22:21 Review of Systems 2 Constitutional: Constitutional: Reports no additional constitutional complaints, Denies chills, Denies fever(s) and Denies night sweats Eyes: Eyes: Reports no additional eye complaints, Denies blurry vision, Denies change in vision, Denies diplopia, Denies eye discharge, Denies loss of vision and Denies eye pain ENT: Denies dizziness Cardiovascular: Cardiovascular: Reports no additional cardiovascular complaints, Denies chest pain, Denies lightheadedness, Denies Loss of Consciousness and Denies dyspnea Respiratory: Respiratory: Reports no additional respiratory complaints and Denies dyspnea Gastrointestinal: Gastrointestinal: Reports no additional gastrointestinal complaints, Reports abdominal pain, Denies melena, Denies hematochezia, Denies change in bowel habits and Denies change in stool character Genitourinary: Genitourinary: Denies hematuria, Denies urinary frequency, Denies dysuria, Denies urinary incontinence, Denies urinary hesitancy and Denies urinary urgency Musculoskeletal: Musculoskeletal: Reports no additional musculoskeletal complaints, Denies numbness and Denies tingling Neurologic: Denies dizziness, Denies loss of vision, Denies numbness and Denies tingling Psychiatric: Psychiatric: Reports no additional psychiatric complaints Endocrine: Endocrine: Reports no additional endocrine complaints Hematologic/Lymphatic: Hematologic/Lymphatic: Reports no additional hematologic/lymphatic complaints Allergic/Immunologic: Allergic/Immunologic: Reports no additional allergic/immunologic complaints [facility] Past Medical History Attestation statement: The following information was validated with the patient. Source: old records reviewed and nursing notes reviewed Medical History Acne Asthma Surgical History No pertinent past surgical history Family History Family History Father Asthma High blood pressure Maternal Grandfather High blood pressure Diabetes Cardiovascular disease Social History Social History Housing: House Patient Tobacco Use Status: Never used Tobacco e-Cigarette/Vaping Use: Never Used service: No Current occupational status: employed Current occupation: [employer] Cognitive needs: No Hearing needs: No Vision needs: No Physical Exam ED Vital Signs: Vital Signs - 24 hr 02/15/24 22:12 02/16/24 02:14 02/16/24 08:02 Temperature 97.7 F 97.6 F Pulse Rate 69 80 66 Respiratory Rate 18 16 18 Blood Pressure 105/66 115/67 105/52 L Pulse Oximetry 99 99 98 Oxygen Delivery Method Room Air Room Air Room Air 02/16/24 09:07 Temperature 97.6 F Pulse Rate 66 Respiratory Rate 18 Blood Pressure 105/52 L Pulse Oximetry 98 Oxygen Delivery Method Room Air BMI result Body Mass Index 35.8 Const General: cooperative, no acute distress, alert and awake Nutritional Appearance: well nourished Orientation/consciousness: patient oriented x3 Limitations: no limitations HENMT Head: Yes normal to inspection and Yes atraumatic Ears: hearing grossly normal bilaterally and external ears normal General nose exam: Normal external nose present, no nasal discharge noted and no epistaxis Face and sinus: Yes normal facial exam, No abrasion and No laceration Mouth: Normal oral and palatal mucosa present, no drooling and no muffled voice Eyes General: appearance normal, both eyes and all related structures Periorbital: periorbital findings normal Eyelids: Yes eyelids normal Conjunctivae: conjunctivae normal Pupils: Equal, round and reactive pupils present EOM: EOMs intact bilaterally Neck Neck: Yes normal visual inspection, Yes full ROM and Yes no lymphadenopathy Chest Chest palpation & inspection: normal inspection of the chest Resp Effort & Inspection: normal respiratory effort and able to speak in complete sentences GI Inspection: Yes normal to inspection Palpation (GI): Soft to palpation, not firm, nontender, no guarding and not rigid Neuro General: patient oriented x3 and moves all extremities Cranial nerves: Yes Equal, round and reactive pupils present Cognition (Neuro): normal cognition Extrem General: Yes normal to inspection, Yes full ROM and Yes capillary refill normal Psych Appearance: grossly normal Mental Status: mental status grossly normal Affect: normal affect Attitude: cooperative Thought process: Normal thought process present Thought content: Normal thought content present Insight: Good insight present (Psych) Medications Administered Discontinued Medications Generic Name Dose Route Start Last Admin Trade Name Freq PRN Reason Stop Dose Admin Sodium Chloride 1,000 mls @ 999 mls/hr 02/16/24 05:00 02/16/24 06:24 Ns IV 02/16/24 06:00 Infused .Q1H1M LAURA Infusion Ketorolac Tromethamine 15 mg 02/16/24 04:51 02/16/24 04:59 Ketorolac Tromethamine 15 Mg/Ml Vial IVPUSH 02/16/24 04:52 15 mg ONCE ONE Administration Ondansetron HCl 4 mg 02/16/24 04:51 07/18/24 05:00 Ondansetron Hcl 4 Mg/2 Ml Vial IVPUSH 02/16/24 04:52 4 mg ONCE ONE Administration Medical Decision Making Medical Decision Making [facility] Narrative: Patient is a 23 year old assigned female at with no reported medical history presenting to the emergency department today with RUQ abdominal pain that radiates to her right shoulder but is overall intermittent. Patient's physical exam was unremarkable. Patient's blood work was unremarkable. Patient's urine showed no acute process. Patient's abdominal US showed no acute process. I explained my physical exam findings as well as all test results to the patient. I answered all questions asked by the patient. I stressed the importance of the patient taking her medication as directed (either prescribed or as the over the counter packaging recommends). I stressed the importance of the patient following up with her primary care provider and a general surgeon. I stressed the importance of the patient returning to the emergency department immediately if her symptoms were to worsen or if she were to develop any dizziness, shortness of breath, difficulty breathing, chest pain, blurry vision, loss of vision, nausea, vomiting, abdominal pain, fever, chills, back pain, or any other complaints. Patient verbalized agreement and understanding with this treatment plan and discharge. Differential Diagnosis Differential Diagnoses: The differential diagnosis associated with the presentation includes Abdominal pain Biliary colic Cholecystitis Choledocolithiasis Admission/Observation Consideration of admission/observation: Escalation of care including admission/observation considered Patient would have been admitted to the hospital had her work up had any findings where hospital admission was appropriate and her clinical presentation warranted hospital admission. Lab Data [facility] Lab Attestation statement: I reviewed the patient's lab results. My interpretation of these results are in the [facility] Rationale portion of this note. 02/15/24 22:33 02/15/24 22:33 Labs: Lab Results 02/15/24 02/16/24 Range/Units 22:33 02:18 WBC 12.6 H (4.8-10.8) X10*3/uL RBC 4.24 (4.20-5.50) X10*6/uL Hgb 12.6 (12.0-16.0) g/dl Hct 35.9 L (37.0-47.0) % MCV 84.7 (80.0-98.0) fL MCH 29.7 (27.0-33.0) pg MCHC 35.1 H (31.0-35.0) g/dl RDW 13.0 (11.0-16.0) % Plt Count 345 (160-400) X10*3/uL MPV 9.6 (9.4-12.3) fL Immature Gran % (Auto) 0.2 (0.0-0.4) % Neut % (Auto) 68.6 (45-73) % Lymph % (Auto) 23.6 (20-40) % Parmer % (Auto) 6.8 (2-11) % Eos % (Auto) 0.6 (0-4) % Baso % (Auto) 0.2 (0-2) % Lymph # (Auto) 3.0 (1.2-4.9) X10*3/uL Parmer # (Auto) 0.9 (0.1-1.2) X10*3/uL Eos # (Auto) 0.1 (0.0-0.4) X10*3/uL Baso # (Auto) 0.0 (0.0-0.2) X10*3/uL Abs Immat Gran (auto) 0.03 (0.00-0.03) X10*3/uL Absolute Neuts (auto) 8.7 H (2.0-8.3) x10*3/uL Absolute Nucleated RBC 0.000 (0.0-0.012) X10*3/uL Nucleated RBC % (auto) 0.0 (0.0-0.2) /100WBC Sodium 140 (135-145) mmol/L Potassium 3.5 (3.3-5.1) mmol/L Chloride 106 (96-108) mmol/L Carbon Dioxide 22 (22-29) mmol/L Anion Gap 16 (12-20) BUN 15 (9-16) mg/dL Creatinine 0.74 (0.5-1.4) mg/dL Estim Creat Clear Calc 124.9 Estimated GFR > 60 Random Glucose 96 (60-115) mg/dL Calcium 9.8 (8.4-10.2) mg/dL Total Bilirubin 0.5 (0.0-1.0) mg/dL Direct Bilirubin 0.2 (0.0-0.5) mg/dL AST 14 (5-31) U/L ALT 11 (0-31) U/L Alkaline Phosphatase 67 (39-117) U/L Total Protein 7.5 (6.5-8.0) g/dL Albumin 4.5 (3.5-5.0) g/dL Lipase 16 (8-78) U/L Urine Color Yellow Urine Appearance Clear Urine pH 6.5 (5.0-9.0) Ur Specific Cameron >= 1.030 H (1.005-1.025) Urine Protein Negative (Neg-Trace) mg/dL Urine Glucose (UA) Negative (Negative) mg/dL Urine Ketones Trace (Negative) mg/dL Urine Blood Negative (Negative) Urine Nitrite Negative (Negative) Ur Leukocyte Esterase Negative (Negative) Urine Test NEGATIVE (NEGATIVE) Independent Interpretation I performed an independent interpretation of an: Ultrasound Interpretation: My interpretation is in agreement with the radiologist's impression of this imaging study. - EXAMINATION: US ABDOMEN LIMITED CLINICAL INFORMATION: Right upper quadrant pain. COMPARISON: None available. TECHNIQUE: Real-time imaging of the right upper quadrant abdominal viscera. This examination is focused on the liver, gallbladder and common duct. FINDINGS: LIVER: Normal size, contour and parenchymal echotexture. No focal lesion or intrahepatic ductal dilatation. GALLBLADDER: Normal. The gallbladder is physiologically distended without evidence of stones, sludge, polyps, wall thickening or pericholecystic fluid. COMMON BILE DUCT: Normal in caliber measuring up to 0.5 cm in maximum diameter. FREE FLUID: None. US/US abdomen limited IMPRESSION: Normal exam. No evidence of cholelithiasis, cholecystitis or biliary tract obstruction. Dictated By: Syed Pino MD Signed By: Electronically signed by Syed Pino MD 02/16/24 0809 Radiology Impression Discussion of test interpretation with radiology: I have reviewed the radiologist's reading. Discharge Plan Discharge Clinical Impression: Abdominal pain, Biliary colic Patient Disposition: Home, Self-Care Instructions: Biliary Colic (ED), Abdominal Pain (ED) Additional Instructions: Your US showed nothing at this time however, I am suspicious your gallbladder is causing these issues and recommend you follow up with a general surgeon for further outpatient work up. Follow up with your primary care provider and a general surgeon. Return to the emergency department immediately if your symptoms worsen or if you develop any dizziness, shortness of breath, difficulty breathing, chest pain, blurry vision, loss of vision, nausea, vomiting, abdominal pain, fever, chills, back pain, or any other complaints. Prescriptions: No Action hydrocortisone [Anti-Itch (HC)] 1 % cream 1 appl topical BID PRN (Reason: rash) Qty: 28.35 0RF famotidine [Pepcid] 20 mg tablet 20 mg PO DAILY PRN benzonatate 200 mg capsule 200 mg PO BID PRN (Reason: cough) Qty: 20 0RF Liletta 20.4 mcg/24 hrs (8 yrs) 52 mg intrauterine device intrauterine Referrals: [facility] General Surgeons [Provider Group] (Call to establish and follow up with a general surgeon) [facility] Family Medicine [Provider Group] (Call to establish and follow up with a primary care provider. If you already have a primary care provider, please follow up with them.) [facility] [Provider Group] [facility] [Provider Group] Stand Alone Forms: Work/School Release Interventions: ED Discharge Assessment Last Done: 02/16/24 09:07 Discharge Date/Time: 02/16/24 09:07 Print Language: Indonesian
[2024-02-16 08:02] VITALS: BP 105/52; PULSE 66; RESP 18; TEMP 36.4; O2SAT 98
[2024-02-16 09:07] VITALS: BP 105/52; PULSE 66; RESP 18; TEMP 36.4; O2SAT 98
== END 2024-02-16 09:07 | disposition home or self-care (01) ==
PROVIDERS: Emergency Provider Emergency Medicine Emergency Medical Services
DX: K80.50 Calculus of bile duct without cholangitis or cholecystitis without obstruction (principal); R10.11 Right upper quadrant pain; M25.511 Pain in right shoulder; J45.909 Unspecified asthma, uncomplicated
CPT/HCPCS: 36415; 76705; 80048; 80076; 81003; 81025; 83690; 85025; 96361; 96374; 96375; 99284; 99285; J1885; J2405

== ENCOUNTER → 2024-02-20 07:51 | Outpatient (BNVA) | payer OTHER, SELFPAY | PROVIDERS: Visit Provider Surgery ==